=== PATIENT | female | born 2000 | race Caucasian/White ===

== ENCOUNTER 2019-04-21 22:46 | Emergency (ER) | payer OTHER ==
[~2019-04-21] VITALS: Ht 167.6 cm; Wt 83.7 kg
[~2019-04-21 22:46] MED LIST: ALLEGRA-D 24 H1 EACH PO; AMOXICILLIN875 MG PO; CONCERTA18 M1; CONCERTA18 M1 PO; IBUPROFEN 600600 M1 PO; ZOFRAN ODT4 MG PO
[2019-04-21] MEDS ORDERED: FLEXERIL PO (23:48)
[2019-04-21] MEDS ORDERED: IBUPROFEN 800800 M1 PO (23:48)
[2019-04-22 00:14] VITALS: BP 135/84
== END 2019-04-22 00:14 | disposition home or self-care (01) ==
LOC: M.ERS 22:46
DX: S93.692A Other sprain of left foot, initial encounter (principal); S16.1XXA Strain of muscle, fascia and tendon at neck level, initial encounter; S29.012A Strain of muscle and tendon of back wall of thorax, initial encounter; S09.8XXA Other specified injuries of head, initial encounter; J45.909 Unspecified asthma, uncomplicated; Z91.041 Radiographic dye allergy status; Z91.018 Allergy to other foods; V89.2XXA Person injured in unspecified motor-vehicle accident, traffic, initial encounter; Y93.89 Activity, other specified; Y92.89 Other specified places as the place of occurrence of the external cause; Y99.8 Other external cause status